=== PATIENT | female | born 1985 | race Caucasian/White ===

== ENCOUNTER 2016-08-18 04:11 | Inpatient (IN) | payer BC ==
[2016-08-18] MEDS ORDERED: Sodium Chloride 0.9% 10 ML Syringe FLUSH PRN ×3 (05:05→13:39)
[2016-08-18] MEDS ORDERED: Sodium Chloride 0.9% 2.5 ML Syringe FLUSH PRN ×3 (05:05→13:39)
[2016-08-18] MEDS: Sodium Chloride 0.9% 1,000 ML IV SCH ×2 (05:25→12:42)
[2016-08-18] MEDS: Terbutaline 1 MG/ML SDV SUBCUT SCH ×5 (05:30→08:18)
[2016-08-18] MEDS ORDERED: Sodium Chloride 0.9% 1,000 ML IV SCH (05:45)
[2016-08-18] MEDS ORDERED: Lactated Ringers 1,000 ML IV ONE (12:30)
[2016-08-18] MEDS: Lactated Ringers 1,000 ML IV SCH ×4 (12:31→16:19)
[2016-08-18] MEDS ORDERED: Sodium Chloride 0.9% 1,000 ML IV ONE (12:33)
[2016-08-18] MEDS: Terbutaline 1 MG/ML SDV SUBCUT PRN ×2 (12:45→14:00)
--- NOTE | 2016-08-18 12:55 | PCM.PREANE ---
Preanesthetic Assessment - Anesthesia/Transfusion/Family Hx Anesthesia History: Prior Anesthesia Without Reaction Family History of Anesthesia Reaction: No Transfusion History: No Prior Transfusion(s) - Review of Systems Other: Reports: None - Physical Assessment NPO Status Date: 08/18/16 NPO Status Time: 12:45 Height: 5 ft Weight: 86.581 kg ASA Class: 2E Mental Status: Alert & Oriented x3 Airway Class: Mallampati = 1 Dentition: Reports: Normal Dentition ROM/Head Extension: Full - Allergies Allergies/Adverse Reactions: Allergies Allergy/AdvReac Type Severity Reaction Status Date / Time No Known Allergies Allergy Verified 01/11/14 09:15 - Blood Blood Available: Yes Product(s) Available: PRBC - Acknowledgements Anesthesia Type Planned: Epidural (epidural vs spinal vs GA patient in labor breech presentation plan for version possible csec) Pt an Appropriate Candidate for the Planned Anesthesia: Yes Alternatives and Risks of Anesthesia Discussed w Pt/Guardian: Yes Pt/Guardian Understands and Agrees with Anesthesia Plan: Yes 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 - Past Surgical History HEENT Surgical History: Reports: Oral surgery (wisdom teeth) Musculoskeletal Surgical History: Reports: Other (see below) Other Musculoskeletal Surgeries/Procedures:: Left ankle repair. - SUBSTANCE USE Smoking Status *Q: Never Smoker Second Hand Smoke Exposure: Yes Recreational Drug Use History: No - CURRENT (IN HOUSE) MEDS Current Meds: Current Medications Sodium Chloride (Normal Saline) 1,000 mls @ 150 mls/hr IV ASDIRECTED [facility] Last Admin: 08/18/16 12:42 Dose: 150 mls/hr Sodium Chloride (Normal Saline) 1,000 mls @ 150 mls/hr IV ASDIRECTED [facility] Sodium Chloride (Normal Saline) 1,000 mls @ 999 mls/hr IV .Bolus ONE Stop: 08/18/16 13:33 Sodium Chloride (Saline Flush) 10 ml FLUSH ASDIRECTED PRN PRN Reason: Keep Vein Open Sodium Chloride (Saline Flush) 2.5 ml FLUSH ASDIRECTED PRN PRN Reason: Keep Vein Open Sodium Chloride (Saline Flush) 10 ml FLUSH ASDIRECTED PRN PRN Reason: Keep Vein Open Sodium Chloride (Saline Flush) 2.5 ml FLUSH ASDIRECTED PRN PRN Reason: Keep Vein Open Terbutaline Sulfate (Brethine) 0.25 mg SUBCUT Q30M PRN PRN Reason: Other Stop: 08/18/16 13:31 Discontinued Medications Lactated Ringer's (Ringers, Lactated) 1,000 mls @ 999 mls/hr IV .BOLUS ONE Stop: 08/18/16 13:30 Terbutaline Sulfate (Brethine) 0.25 mg SUBCUT Q20M [facility]EL[facility] Last Admin: 08/18/16 08:18 Dose: Not Given
[2016-08-18] MEDS ORDERED: Bupivacaine 0.5% 10 ML SDV ONE (13:38)
[2016-08-18] MEDS ORDERED: Carboprost Tromethamine 250 MCG/1 ML Amp IM PRN (13:39)
[2016-08-18] MEDS ORDERED: Lidocaine 1% 50 ML MDV INJECT PRN (13:39)
[2016-08-18] MEDS ORDERED: Water For Irrigation,Sterile 1,000 ML Container IRR PRN (13:39)
[2016-08-18] MEDS ORDERED: Nalbuphine 10 MG/1 ML Vial IVPUSH PRN (13:39)
[2016-08-18] MEDS ORDERED: Butorphanol 1 MG/ML SDV IVPUSH PRN (13:39)
[2016-08-18] MEDS ORDERED: Misoprostol 200 MCG Tab PO PRN (13:39)
[2016-08-18] MEDS ORDERED: Methylergonovine 0.2 MG/1 ML Amp IM PRN (13:39)
[2016-08-18] MEDS ORDERED: Oxytocin/Lactated Ringers 30 UNIT/500 ML BAG IV SCH ×2 (13:45→15:00)
[2016-08-18] MEDS ORDERED: ePHEDrine 50 MG/ML SDV ONE (13:58)
[2016-08-18] MEDS ORDERED: Ropivacaine HCl/PF 100 ML ONE (16:18)
[2016-08-18] MEDS ORDERED: Witch Hazel Medicated Pads 40/Jar TOP PRN (18:31)
[2016-08-18] MEDS ORDERED: Benzocaine/Menthol 20%-0.5% Spray 78 GM Cannister TOP PRN (18:31)
[2016-08-18] MEDS ORDERED: Docusate Sodium 100 MG Cap PO PRN (18:31)
[2016-08-18] MEDS ORDERED: Bisacodyl 10 MG Supp RECTAL PRN (18:31)
[2016-08-18] MEDS ORDERED: Acetaminophen 500 MG Tab PO PRN (18:31)
[2016-08-18] MEDS ORDERED: Lanolin 100% Cream 7 GM Tube TOP PRN (18:31)
[2016-08-18] MEDS: Ibuprofen 800 MG Tab PO PRN (18:47)
--- NOTE | 2016-08-18 22:55 | OR ---
SURGEON: Gabriella Mcdermott DATE OF PROCEDURE: 08/18/2016 BRIEF PREOPERATIVE HISTORY: This is a 31-year-old G8, P5, who presented to Labor and Delivery in the wee hours of the morning on August 18, 2016 approximately 0400 hours with complaints of irregular contractions. The patient was concerned because she has a history of precipitous deliveries and this fetus was noted to be breech in the office. Initially, though the patient is 37 weeks gestation, since fetus is breech, there was small intervention in regard to the bolus of IV fluids in addition to 3 doses of subcu terbutaline. After this intervention, the patient's contractions were very occasional, but a few hours later, the patient started up with contractions again. The patient was not having regular contractions anywhere from 3 to 8 minutes apart. The patient on initial exam, earlier in the morning, the patient was noted to be 1 cm dilated. The patient was checked by another nurse and was found to be several hours later and found to be fingertip thick and high. The patient was allowed to see whether not there was going to be any additional changes. Several hours after that, the patient did undergo further exam by a different nurses and the patient was noted to be noted to be 2 to 3 cm dilated, about 50% effaced, and very soft. As there was a conflict in regard to the exam, the patient was examined by myself and found to be 3 cm dilated. Bedside ultrasound was done, and vertex was noted to be in mom's right upper quadrant noting to be in persistent piedad breech presentation. The patient was consented for a version later on in the week on 23 of August. The patient did at that time know that there was a nuchal cord. The patient still desired to go forward with version. An official ultrasound was taken and the ultrasounds from the office were reviewed. On the day of the , amniotic fluid was noted to be 17 cm and there was noted to be a cord behind the baby's neck. In addition, from the office ultrasound, it was noted that the placenta was posterior. With the last exam by me, presenting part was not noted to be in the maternal pelvis, and it was not difficult to palpate and with the patient being grand multiparous status and no history of with good fluid around the baby, though maternal abdomen did have a significant amount of adipose tissue, the patient was thought to be a good candidate for a version since she was not having strong contractions in a regular pattern. The patient was admitted at this point. Labs were taken. The patient did receive an epidural for version. The patient did consent to external cephalic version knowing the risk of version being distress abruption, possible dislodgement of the limb, rupture of membranes, labor and uterine rupture. Again, knowing all above, the patient did sign the consents for an external cephalic version. The patient did undergo a successful external cephalic version with the assistance of Dr. Иван Abbott. Once the vertex was noted to be the presenting part, the patient quickly underwent an amniotomy secondary to the patient also being known to be GBS negative. Just prior to amniotomy, vertex was noted to be floating up to the maternal left and the vertex was redirected down with the non-examining hand. Holding the poles and the vertex down, amniotomy was performed for copious clear fluid. The vertex eventually settled down to the pelvis and it was not dislodged further or ballotable. The patient was noted to be having contractions 2 to 3 minutes at this point. The patient was allowed to labor from this point on. Approximately an hour later, though the patient was complaining of pressure and was re-examined after the amniotomy, the patient was noted to be 6 cm. At a check later, the patient was still noted to be 6 cm dilated with what was thought to be some sort of asynclitism. At this point, IV Pitocin was given for efforts of augmentation of labor at this point. With complaints of increased pelvic pressure, the patient was examined and slowly, but surely, the patient did eventually reach complete dilation and started maternal expulsive efforts. With maternal expulsive efforts, even prior to pushing, there were noted to be variable heart decelerations. With maternal expulsive efforts, there were prolonged decelerations followed by slow return to baseline with persistent heart tones in the 80s, though occasionally heart tones would recover intermittently to baseline in the 120s. This happened over approximately 8-minute period. As maternal expulsive efforts were not as effective and maternal pelvis was reinspected, the patient's bladder was empty and there was more than enough room for vertex to come down, though it was not coming down adequately. The patient was examined. position was noted to be right occiput anterior with some anterior asynclitism. The patient was briefly apprised of the risks of the vacuum being cephalhematoma with increased bilirubin levels, retinal hemorrhages, and the least likely, but most risk with the vacuum, subgaleal bleed. Knowing all of the above, the patient was okay to go forward with a vacuum assisted delivery. The hard cup Kiwi was used for this effort. PREOPERATIVE DIAGNOSES: 1. Intrauterine at 37 weeks. 2. Labor. 3. Status post external cephalic version. 4. Group B streptococcus negative. POSTOPERATIVE DIAGNOSES: 1. Intrauterine at 37 weeks. 2. Delivered status. 3. First-degree perineal laceration. PROCEDURE PERFORMED: High Kiwi vacuum and repair of first-degree perineal laceration. ANESTHESIA: Epidural. ESTIMATED BLOOD LOSS: 75 mL. FINDINGS: Viable female infant in vertex presentation with score of 2, 3, and 7 at 1, 5, and 10 minutes respectively and weight of 2930 g. Normal intact placenta with 3-vessel cord. Small first-degree perineal laceration. SPECIMEN REMOVED: Placenta. CONDITION: Postoperatively, the patient and tolerated the procedure well. COMPLICATIONS: None known. DESCRIPTION OF PROCEDURE: With maternal expulsive efforts and adequate maternal anesthesia, maternal expulsive efforts were not adequate to move vertex. There was excellent amount room in this grand multiparous patient. It was decided at this point secondary to heart tracing being anywhere from 80s to 90s with intermittent back up to baseline in the 120s, this carried on for a period of approximately 8 minutes, it was decided to use the vacuum. The balloon for the Archuleta bulb was deflated at this point and hard cup Kiwi was placed. With maternal expulsive efforts and with pumping the vacuum and Kiwi up to 50 mmHg and with maternal expulsive efforts, and 1 traction pull, the vertex was moved from at a +2 station to . The vacuum was disengaged and the fetus was delivered. There was no nuchal cord to be released and the anterior shoulder delivered spontaneously. The infant was bulb suctioned at delivery. Cord was doubly clamped and cut. Initially, the fetus was noted to be floppy, but once suctioning was done, the fetus had spontaneous cry, and then was placed directly onto mom was as tone was a little better. Cord gases and cord blood were collected and sent for analysis. After delivery of the , IV Pitocin was given as an uterotonic to prevent excessive maternal blood loss to help expel the placenta. With signs of placental separation, fundal massage was completed, along with traction on the umbilical cord, a normal intact placenta with 3-vessel cord was delivered. After delivery of and placenta, the vagina, perineum, and rectum were explored and the patient had a small first- degree perineal laceration that was reapproximated with 4-0 Polysorb suture in an interrupted fashion. After repair, the lower uterine segment of the vagina was cleared of all clots and debris. The patient was cleansed. Pads were changed. The bed was returned to functioning status. The patient and tolerated the procedure well. There was a rapid response called for in the warmer secondary to poor tone and poor crying effort. Once the fetus was fully and deeply suctioned and with additional oxygen, infant did improve and was eventually taken to the nursery for further evaluation by the baby physician. The placenta was sent to pathology for analysis of the rapid response for the baby, there were no known complications. Sponge, lap, needle, and instrument counts were correct. JOSELINE / JACOB /[id number] SIMEON
[2016-08-19] MEDS: Ibuprofen 800 MG Tab PO PRN ×2 (03:27→13:13)
[2016-08-19] MEDS: oxyCODONE 5 MG Tab PO PRN ×2 (09:08→13:12)
--- NOTE | 2016-08-19 09:38 | PCM48HPAN ---
Post Anesthesia Note - EVALUATION WITHIN 48HRS OF ANESTHETIC Vital Signs in Normal Range: Yes Patient Participated in Evaluation: Yes Respiratory Function Stable: Yes Airway Patent: Yes Cardiovascular Function Stable: Yes Hydration Status Stable: Yes Pain Control Satisfactory: Yes Nausea and Vomiting Control Satisfactory: Yes Mental Status Recovered: Yes
--- NOTE | 2016-08-19 10:55 | US ---
EXAM DATE: 08/18/16 PATIENT'S AGE: 31 Patient: CRISTHIAN SANTIAGO Facility: [place], [place] Site . Site : 1985 Study: US OB Pelvis [id number]/23/2017 2:31:57 PM Ordering Physician: Baldemar Quiroz Final Report: INDICATION: Version. Technique OB ultrasound. Findings : Static images demonstrate an intrauterine with head seen within the cephalic position on the final images. Dictated by Suzi Luis MD @ Aug 18 2016 2:55PM (Electronic Signature) Report Signed by Proxy and Original Signed Document filed in the Medical Record. MTDD
--- NOTE | 2016-08-19 10:55 | US ---
EXAM DATE: 08/18/16 PATIENT'S AGE: 31 Patient: CRISTHIAN SANTIAGO Facility: [place], [place] Site . Site : 1985 Study: US OB Pelvis [id number]/23/2017 2:31:18 PM Ordering Physician: Baldemar Quiroz Final Report: CLINICAL HISTORY: Check ARLET. Nuchal cord. TECHNIQUE: Real time perez scale imaging of the fetus was performed. FINDINGS: ARLET measures 17.6 cm. Umbilical cords without appear to be near the neck. Positive cardiac activity measures 148 beats per minute. Dictated by Suzi Luis MD @ Aug 18 2016 2:55PM (Electronic Signature) Report Signed by Proxy and Original Signed Document filed in the Medical Record. MTDD
[2016-08-19 13:01] VITALS: BP 96/46
--- NOTE | 2016-08-19 16:00 | PCM.PNPP ---
- General Info Date of Service: 08/19/16 Functional Status: Reports: pain controlled, tolerating diet, ambulating - Review of Systems General: Reports: No Symptoms HEENT: Reports: no symptoms Pulmonary: Reports: no symptoms Cardiovascular: Reports: No Symptoms Gastrointestinal: Reports: No symptoms Genitourinary: Reports: no symptoms Musculoskeletal: Reports: no symptoms Skin: Reports: no symptoms Neurological: Reports: No Symptoms Psychiatric: Reports: no symptoms - Patient Data Vital Signs - most recent: Last Vital Signs Temp 36.6 C 08/19/16 08:45 Pulse 84 08/19/16 08:45 Resp 16 08/19/16 08:45 BP 96/46 L 08/19/16 08:45 Pulse Ox 97 08/19/16 08:45 Weight - most recent: 93.894 kg Lab Results - last 24 hrs: Laboratory Results - last 24 hr 08/19/16 Range/Units 04:15 Hgb 9.8 L (12.0-16.0) g/dL Hct 30.6 L (36.0-46.0) % Med Orders - Current: Current Medications Acetaminophen (Tylenol Extra Strength) 500 mg PO Q4H PRN PRN Reason: Pain Benzocaine/Menthol (Dermoplast Pain Relief 20%-0.5% [place]) 78 gm TOP ASDIRECTED PRN PRN Reason: Perineal Comfort Measure Last Admin: 08/18/16 18:46 Dose: 1 can Bisacodyl (Dulcolax) 10 mg RECTAL ONETIME PRN PRN Reason: Constipation Butorphanol Tartrate (Stadol) 1 mg IVPUSH Q1H PRN PRN Reason: Pain Carboprost Tromethamine (Hemabate Ds) 250 mcg IM ASDIRECTED PRN PRN Reason: Post Hemorrhage Docusate Sodium (Colace) 100 mg PO BID PRN PRN Reason: Constipation Emollient Ointment (Lansinoh Hpa) 0 gm TOP ASDIRECTED PRN PRN Reason: Sore Nipples Last Admin: 08/18/16 18:47 Dose: 1 tube Sodium Chloride (Normal Saline) 1,000 mls @ 150 mls/hr IV ASDIRECTED [facility] Last Admin: 08/18/16 12:42 Dose: 150 mls/hr Sodium Chloride (Normal Saline) 1,000 mls @ 150 mls/hr IV ASDIRECTED [facility]EL[facility] Lactated Ringer's (Ringers, Lactated) 1,000 mls @ 150 mls/hr IV ASDIRECTED [facility] Last Admin: 08/18/16 16:19 Dose: 150 mls/hr Oxytocin/Lactated Ringer's (Pitocin In Lr 30 Units/500 Ml) 30 unit in 500 mls @ 2 mls/hr IV TITRATE ANNELISE; 2 MUNITS/MIN PRN Reason: Protocol Ibuprofen (Motrin) 800 mg PO Q6H PRN PRN Reason: Pain Last Admin: 08/19/16 13:13 Dose: 800 mg Lidocaine HCl (Xylocaine 1%) 50 ml INJECT .ONCE PRN PRN Reason: Laceration repair Methylergonovine Maleate (Methergine) 0.2 mg IM ASDIRECTED PRN PRN Reason: Post Hemorrhage Mineral Oil (Mineral Oil) 15 ml .XX DAILY ANNELISE Last Admin: 08/19/16 13:44 Dose: Not Given Misoprostol (Cytotec) 200 mcg PO .ONCE PRN PRN Reason: Post Hemorrhage Oxycodone HCl (Oxycodone) 5 mg PO Q2H PRN PRN Reason: Pain Last Admin: 08/19/16 13:12 Dose: 5 mg Sodium Chloride (Saline Flush) 10 ml FLUSH ASDIRECTED PRN PRN Reason: Keep Vein Open Sodium Chloride (Saline Flush) 2.5 ml FLUSH ASDIRECTED PRN PRN Reason: Keep Vein Open Sodium Chloride (Saline Flush) 10 ml FLUSH ASDIRECTED PRN PRN Reason: Keep Vein Open Sodium Chloride (Saline Flush) 2.5 ml FLUSH ASDIRECTED PRN PRN Reason: Keep Vein Open Sodium Chloride (Saline Flush) 10 ml FLUSH ASDIRECTED PRN PRN Reason: Keep Vein Open Sodium Chloride (Saline Flush) 2.5 ml FLUSH ASDIRECTED PRN PRN Reason: Keep Vein Open Sterile Water (Sterile Water For Irrigation) 1,000 ml IRR ASDIRECTED PRN PRN Reason: delivery Last Admin: 08/18/16 18:38 Dose: 1,000 ml Witch Brenda (Tucks) 1 pad TOP ASDIRECTED PRN PRN Reason: comfort care Discontinued Medications Bupivacaine HCl (Sensorcaine-Mpf 0.5%) Confirm Administered Dose 20 ml .ROUTE .STK-MED ONE Stop: 08/18/16 13:39 Last Admin: 08/19/16 13:03 Dose: Not Given Ephedrine Sulfate (Ephedrine Sulfate) Confirm Administered Dose 50 mg .ROUTE .STK-MED ONE Stop: 08/18/16 13:59 Last Admin: 08/19/16 13:03 Dose: Not Given Lactated Ringer's (Ringers, Lactated) 1,000 mls @ 999 mls/hr IV .BOLUS ONE Stop: 08/18/16 13:30 Sodium Chloride (Normal Saline) 1,000 mls @ 999 mls/hr IV .Bolus ONE Stop: 08/18/16 13:33 Last Admin: 08/19/16 13:03 Dose: Not Given Oxytocin/Lactated Ringer's (Pitocin In Lr 30 Units/500 Ml) 30 unit in 500 mls @ 999 mls/hr IV TITRATE ANNELISE; 999 MUNITS/MIN PRN Reason: Protocol Stop: 08/18/16 14:16 Last Titration: 08/18/16 17:57 Dose: 999 munits/min, 999 mls/hr Ropivacaine (Naropin 0.2%) Confirm Administered Dose 100 mls @ as directed .ROUTE .STK-MED ONE Stop: 08/18/16 16:19 Last Admin: 08/19/16 13:03 Dose: Not Given Nalbuphine HCl (Nubain) 10 mg IVPUSH Q1H PRN PRN Reason: Pain (severe 7-10) Stop: 08/18/16 15:40 Terbutaline Sulfate (Brethine) 0.25 mg SUBCUT Q20M [facility] Last Admin: 08/18/16 08:18 Dose: Not Given Terbutaline Sulfate (Brethine) 0.25 mg SUBCUT Q30M PRN PRN Reason: Other Stop: 08/18/16 13:31 Last Admin: 08/18/16 14:00 Dose: 0.25 mg - Interaction Disposition, : to Nursery Interaction: Unable to Hold Infant at this Time (baby in nursery on supplemental oxygen) Infant Feeding: Other (see below) (needs to start pumping) Support Person: - Recovery Exam Fundal Tone: Firm Fundal Level: 1 Fingerbreadths Below Umbilicus Fundal Placement: Midline Lochia Amount: Scant Lochia Color: Rubra/Red Perineum Description: Other (see below) Other Perinuem Description: 1st degree laceration Episiotomy/Laceration: Approximated Bladder Status: Voiding Urinary Elimination: Voided - Exam General: alert, oriented Abdomen: soft, no tenderness, no distension Extremities: No: no edema (1+ bilateral) Skin: warm, dry, intact - Problem List & Annotations (1) Breech presentation successfully converted to cephalic presentation, delivered SNOMED Code(s): 75001478 Code(s): O32.1XX0 - MATERNAL CARE FOR BREECH PRESENTATION, UNSP Status: Acute Current Visit: Yes (2) Vacuum extraction, delivered, current hospitalization SNOMED Code(s): 925198317 Code(s): O66.5 - ATTEMPTED APPLICATION OF VACUUM EXTRACTOR AND FORCEPS Status: Acute Current Visit: Yes - Problem List Review Problem List Initiated/Reviewed/Updated: Yes - My Orders Last 24 Hours: My Active Orders 08/19/16 15:19 Ready for Discharge [RC] PER UNIT ROUTINE - Assessment Assessment:: PPD#1 after vacuum assisted vaginal delivery following external cephalic version. She will be discharged this afternoon as baby is being transferred to [facility]. She will work on establishing milk supply by pumping. - Plan Plan:: Dismissed to go to [facility] with baby. She will keep 6 week check
== END 2016-08-19 17:00 | disposition home or self-care (01) | DRG 560 ==
LOC: MW.OBCHECK 04:11 → MW.OB 04:11 → MW.OBCHECK 17:57
PROVIDERS: ADMIT Obstetrics & Gynecology; ATTEND Obstetrics & Gynecology
PROC: 10D07Z6 Extraction of Products of Conception, Vacuum, Via Natural or Artificial Opening (ICD-10-PCS; principal; 2016-08-18)
PROC: 10907ZC Drainage of Amniotic Fluid, Therapeutic from Products of Conception, Via Natural or Artificial Opening (ICD-10-PCS; 2016-08-18)
PROC: 10S0XZZ Reposition Products of Conception, External Approach (ICD-10-PCS; 2016-08-18)
PROC: 0HQ9XZZ Repair Perineum Skin, External Approach (ICD-10-PCS; 2016-08-18)
DX: O32.1XX0 Maternal care for breech presentation, not applicable or unspecified (principal); O76 Abnormality in fetal heart rate and rhythm complicating labor and delivery; Z3A.37 37 weeks gestation of pregnancy; Z37.0 Single live birth
CPT/HCPCS: 36415; 59025; 59412; 76805; 76815; 76815-26; 85014; 85018; 85025; 86850; 86870; 86900; 86901; 88307; A9270-GY; J3105; J7040; J7120